=== PATIENT | male | born 1950 | race Caucasian/White ===

== ENCOUNTER 2023-04-13 13:52 | Emergency (ER) | payer OTHER ==
[~2023-04-13] VITALS: Ht 175.2 cm; Wt 67.1 kg
[2023-04-13] MEDS ORDERED: AMOX-CLAV 875-1 EACH PO (15:02)
== END 2023-04-13 15:08 | disposition home or self-care (01) ==
LOC: ED 13:52
DX: K04.7 Periapical abscess without sinus (principal); F17.210 Nicotine dependence, cigarettes, uncomplicated; E78.5 Hyperlipidemia, unspecified

== ENCOUNTER → 2023-08-30 | Outpatient (CLI) | payer OTHER ==
[~2023-08-30] MED LIST: AMOX-CLAV 875-1 EACH PO
== END | disposition home or self-care (01) ==
LOC: US 03:40
PROVIDERS: ATTEND Internal Medicine Cardiovascular Disease
DX: I71.40 Abdominal aortic aneurysm, without rupture, unspecified (principal)